=== PATIENT | female | born 1945 | race Native Hawaiian/Other Pacific Islander ===

== ENCOUNTER 2019-02-17 23:32 | Emergency (ER) | payer OTHER ==
[~2019-02-17] VITALS: Ht 157.5 cm; Wt 90.7 kg
[~2019-02-17 23:32] MED LIST: ASPIRIN DR81 MG PO; BUSP5TAB2 PO; BUSPIRONE5 MG PO; DIPH25CA90 PO; DOCU100C10 PO; ESCI10TA PO; FATHER JOH10 MG/5 ML PO; GAS RELIEF80 MG PO; IPRATROPIUM/ INH; KETO10TA34 PO; LANTUS100 UNIT/M SC; LEVOCETIRIZINE D5 MG PO; METF500T PO; METO-837 PO; NORCO 10/325***1 TAB PO; NOVOLOG FL100 UNIT/M SC; PANTOPRAZOLE 40MG TA PO; PERCOCET1 TA3 PO; PRAVACHOL20 MG PO; PREPARATION H RE; SITA50TA2 PO; TAMS0.4C PO; TRAZODONE HYDRO50 MG PO; TRIA0.1C5 TOP; TYLENOL325 MG PO; ZOFRAN8 MG PO; [UNRECOGNIZED DRUG - CODE] TOP
[2019-02-17 23:46] VITALS: BP 145/59; TEMP 97.7
[2019-02-18 00:09] LABS: PLATELET COUNT 179 K/uL (152-353)
[2019-02-18 00:23] LABS: POTASSIUM 4.8 mmol/L (3.6-5.2)
[2019-02-18] MEDS ORDERED: ASA LOW DOSE81 MG PO (07:44)
[2019-02-18] MEDS ORDERED: LORA0.5T17 PO (07:51)
[2019-02-18] MEDS ORDERED: MELATONIN5 M2 PO (07:56)
[2019-02-18] MEDS ORDERED: TRADJENTA5 M1 PO (08:19)
[2019-02-18] MEDS ORDERED: HYDR50CA21 PO (08:22)
[2019-02-18] MEDS ORDERED: GLUCAGEN HYPOKIT1 MG IM (08:46)
== END 2019-02-18 01:19 | disposition other institution (70) ==
LOC: ED 23:32
PROVIDERS: Internal Medicine
DX: R46.89 Other symptoms and signs involving appearance and behavior (principal); F41.8 Other specified anxiety disorders; F32.89 Other specified depressive episodes; I45.19 Other right bundle-branch block; I45.81 Long QT syndrome; Z04.6 Encounter for general psychiatric examination, requested by authority
CPT/HCPCS: 36415; 80053; 85027; 93005; 99285